=== PATIENT | male | born 1945 | race Caucasian/White ===

== ENCOUNTER 2018-10-10 15:54 | Emergency (ER) | payer MEDICARE ==
[~2018-10-10] VITALS: Ht 182.9 cm; Wt 74.4 kg
--- OUTSIDE RECORDS SUMMARY | 2018-10-10 15:57 | XMS REPORT | Summary of Care ---
Author Author Marsha Roman M.A. Organization Unknown Address [facility] Phone Unavailable Care Team Providers Care Watchmaker Apprentice Name Role Phone SAMI Gillespie, Marsha Joe M.A. Unavailable Unavailable MYRANDA CORRAL M.D. Unavailable Unavailable SAMI SMITH [place], DEMETRIO Alatorre Unavailable Unavailable MYRANDA CORRAL MD Unavailable Unavailable Unavailable Unavailable Functional Status Name Dates Details Functional status health issues are not documented Status: Name Dates Details Cognitive status health issues are not documented Status: Problems Name Dates Details Dysthymic disorder (300.4, F34.1) Status: Active S/P coronary artery stent placement (V45.82, Z95.5) Status: Active Hypercholesterolemia (272.0, E78.00) Status: Active Benign prostate hyperplasia (600.00, N40.0) Status: Active Depressive disorder (311, F32.9) Status: Active Influenza vaccine needed (V04.81, Z23) Status: Active Chest pain (786.50, R07.9) Status: Active History of CEA (carotid endarterectomy) (V45.89, Z98.890) Status: Active PVD (peripheral vascular disease) (443.9, I73.9) Status: Active Hypertension (401.9, I10) Status: Active Coronary artery disease (414.00, I25.10) Status: Active Vascular dementia (290.40, F01.50) Status: Active Medications Name Dates Details Aspirin 81 MG TABS TAKE 1 TABLET DAILY. Active Vitamin B-12 1000 MCG Oral Tablet TAKE 1 TABLET DAILY * Refills: 0 Active Rosuvastatin Calcium 40 MG Oral Tablet TAKE 1 TABLET DAILY. * Refills: 0 Active Vitamin D3 2000 UNIT Oral Capsule TAKE 1 CAPSULE DAILY * Refills: 0 Active Metoprolol Tartrate 25 MG Oral Tablet TAKE 1 TABLET TWICE DAILY. * Refills: 0 Active Isosorbide Mononitrate ER 60 MG Oral Tablet Extended Release 24 Hour TAKE 1 TABLET ONCE DAILY. * Refills: 0 Active Mirtazapine 30 MG Oral Tablet TAKE 1 TABLET AT BEDTIME. * Quantity: 30 Refills: 5 SAMI GillespieDEMETRIO Active Finasteride 5 MG Oral Tablet TAKE 1 TABLET DAILY. * Refills: 0 Active NIFEdipine ER 30 MG Oral Tablet Extended Release 24 Hour TAKE 1 TABLET EVERY EVENING * Quantity: 30 Refills: 10 SHAYNA GillespieMYRANDA * Start : 28-Jul-2018 Active Clopidogrel Bisulfate 75 MG Oral Tablet TAKE FOUR(4) TABLETS ON DAY ONE THEN TAKE ONE TABLET DAILY * Quantity: 34 Refills: 11 SHAYNA GillespieMYRANDA * Start : 04-Aug-2018 Active Allergies and Adverse Reactions Name Dates Details Keflex TABS (Allergy) Status: Active Sulfa Drugs (Allergy) Status: Active Past Medical History Name Dates Details History of backache (V13.59, Z87.39) Status: Resolved History of Brachial neuritis (723.4, M54.12) Status: Resolved History of carotid artery stenosis (V12.59, Z86.79) Status: Resolved History of chronic kidney disease (V13.09, Z87.448) Status: Resolved History of chronic obstructive lung disease (V12.69, Z87.09) Status: Resolved History of Degeneration of thoracic or lumbar intervertebral disc Status: Resolved History of dementia (V11.8, Z86.59) Status: Resolved History of depression (V11.8, Z86.59) Status: Resolved History of Enlarged prostate (600.00, N40.0) Status: Resolved History of hyperlipidemia (V12.29, Z86.39) Status: Resolved History of malignant neoplasm of skin (V10.83, Z85.828) Status: Resolved History of peripheral vascular disease (V12.59, Z86.79) Status: Resolved History of Presence of stent in artery (V49.89, Z95.828) Status: Resolved History of TIA (transient ischemic attack) (435.9, G45.9) Status: Resolved History of vitamin D deficiency (V12.1, Z86.39) Status: Resolved Procedures Procedure Dates Details [[facility]] LIPID PANEL Date: 04-Aug-2018 [QL] HEPATIC FUNCTION PANEL Date: 04-Aug-2018 [N] Carotid Bilateral 53578 Date: 18-Aug-2018 [N] HARISH-Ankle Brachial Index Multiple Levels 34241 Date: 18-Aug-2018 History of Shoulder Surgery Completed History of Coronary Artery Triple Bypass Graft Completed History of Cardiac catheterization with stent placement Completed History of Cholecystectomy Completed History of Neuroplasty Decompression Median Nerve At Carpal Tunnel Completed Immunization Name Dates Details pneumococcal vaccine, unspecified formulation on: Sep-2015 Fluzone High-Dose 0.5 ML Intramuscular Suspension Prefilled Syringe Lot #: [id number] on: 26-Jul-2018 Family History Name Dates Details Family history of Coronary Artery Disease (V17.49) Status: Active Family history of Stroke Syndrome (V17.1) Status: Active Family history of myocardial infarction (V17.3, Z82.49) Status: Active Name Dates Details Family history of malignant neoplasm of breast (V16.3, Z80.3) Status: Active Name Dates Details Family history of Aneurysm (442.9, I72.9) Status: Active Family history of Presence of stent in artery (V49.89, Z95.828) Status: Active Social History Name Dates Details - Status: Name Dates Details Current every day smoker Vital Signs Date Test Result Details [id number] BP Systolic 117 mm[Hg] Status: Comments: Location: LUE; Position: Sitting BP Diastolic 66 mm[Hg] Status: Comments: Location: LUE; Position: Sitting Height 72 in Status: Weight 165.3 lb Status: Body Mass Index Calculated 22.42 kg/m2 Status: Body Surface Area Calculated 1.96 m2 Status: Heart Rate 66 /min Status: Respiration Rate 16 /min Status: Temperature 98.3 f Status: Comments: Method: Oral [id number] BP Systolic 148 mm[Hg] Status: Comments: Location: LUE; Position: Sitting BP Diastolic 76 mm[Hg] Status: Comments: Location: LUE; Position: Sitting Height 72 in Status: Weight 158.5 lb Status: Body Mass Index Calculated 21.5 kg/m2 Status: Body Surface Area Calculated 1.93 m2 Status: Heart Rate 71 /min Status: Results Date Description Value Details Results not documented Plan of Care Name Dates Details Planned Observations Planned Goals not documented Planned Encounters Appointment; DEMETRIO GALLARDO M.D. On: 27-Oct-2018 14:15 Appointment; [facility] On: 10-Nov-2018 9:00 Appointment; [facility] On: 10-Nov-2018 10:00 Appointment; MYRANDA CORRAL M.D. On: 17-Nov-2018 10:40 Interventions Provided Follow-ups/Referrals* Follow-up visit in 2 months; Done: 31 Aug 2018 Instructions Name Dates Details Instructions not documented Encounters Appointment; DEMETRIO GALLARDO M.D. Encounter Diagnosis: Problem not documented On: 26-Jul-2018 9:30 Appointment; MYRANDA CORRAL M.D. Encounter Diagnosis: Problem not documented On: 28-Jul-2018 15:20 Appointment; LITOFREDYAshley NUCLEAR Encounter Diagnosis: Problem not documented On: 04-Aug-2018 8:30 Appointment; MYRANDA CORRAL M.D. Encounter Diagnosis: Problem not documented On: 04-Aug-2018 15:20
--- OUTSIDE RECORDS SUMMARY | 2018-10-10 15:57 | XMS REPORT ---
Author Author [facility] Address Unknown Phone Unavailable Care Team Providers Care Biopsychologist Name Role Phone Unavailable Unavailable Problems This patient has no known problems. Allergies, Adverse Reactions, Alerts This patient has no known allergies or adverse reactions. Medications This patient has no known medications.
[2018-10-10] MEDS ORDERED: SODIUM CHLORIDE 0.9% 1000ML 1,000 ML IV STA (16:48)
[2018-10-10] MEDS ORDERED: VANCOMYCIN 1GM/NS 250 ML 250 ML IV ONE (17:00)
[2018-10-10] MEDS ORDERED: PIPER-TAZ 3.375 GM 50 ML IV ONE (17:00)
[2018-10-10 17:53] LABS: BASOPHILS % 0.2 % (0.0-1.0); EOSINOPHILS % 0.1 % (0.0-6.0); HEMATOCRIT 37.8 % (38.2-49.6); HEMOGLOBIN 12.4 g/dL (14.0-18.0); LYMPHOCYTES # (AUTO) 1.4 (1.0-3.2); LYMPHOCYTES % 10.6 % (18.0-39.1); MEAN CORPUSCULAR HEMOGLOBIN 31.5 pg (28-32); MEAN CORPUSCULAR HGB CONC 32.8 g/dL (31-35); MEAN CORPUSCULAR VOLUME 95.9 fL (81-99); MONOCYTES % 7.5 % (4.4-11.3); NEUTROPHILS # (AUTO) 10.8 (2.1-6.9); NEUTROPHILS % 81.4 % (38.7-80.0); PLATELET COUNT 196 x10e3/uL (140-360); RED BLOOD COUNT 3.94 x10e6/uL (4.3-5.7); RED CELL DISTRIBUTION WIDTH 12.9 % (11.7-14.4)
[2018-10-10] MEDS ORDERED: ACETAMINOPHEN 325 MG TAB PO ONE (18:00)
[2018-10-10 18:17] LABS: ALBUMIN 3.4 g/dL (3.5-5.0); ALBUMIN/GLOBULIN RATIO 0.8 (0.8-2.0); ANION GAP 14.1 mmol/L (8-16); CALCIUM 9.6 mg/dL (8.4-10.2); CREATININE, SERUM 1.27 mg/dL (0.72-1.25); MAGNESIUM 2.1 MG/DL (1.3-2.1); POTASSIUM 4.1 mmol/L (3.5-5.1)
--- NOTE | 2018-10-10 19:00 | NUR ---
REPORT GIVEN TO RAYMOND AUGUST
[2018-10-10] MEDS ORDERED: ASPIR 8181 MG PO (19:29)
[2018-10-10] MEDS ORDERED: ISOSORBIDE MONO60 MG PO (19:29)
[2018-10-10] MEDS ORDERED: FINASTERIDE5 MG PO (19:29)
[2018-10-10] MEDS ORDERED: MIRTAZAPINE30 MG PO (19:29)
[2018-10-10] MEDS ORDERED: CLOPIDOGREL75 MG PO (19:29)
[2018-10-10] MEDS ORDERED: [UNRECOGNIZED DRUG - OTHER] (19:29)
[2018-10-10] MEDS ORDERED: VITAMIN B-121000 MC1 PO (19:29)
[2018-10-10] MEDS ORDERED: CRESTOR40 MG PO (19:29)
[2018-10-10] MEDS ORDERED: LOPRESSOR25 MG PO (19:29)
[2018-10-10] MEDS ORDERED: NAMENDA10 MG PO (19:29)
[2018-10-10] MEDS ORDERED: NIFEDIPINE ER30 MG PO (19:29)
[2018-10-10] MEDS ORDERED: VITAMIN D32000 UNI1 PO (19:29)
--- NOTE | 2018-10-10 20:04 | Diagnostic Imaging Report ---
History:Upper lip and nasal swelling. Comparison studies: None Technique: Axial images were obtained through the maxillofacial region. Coronal and sagittal images reconstructed from the axial data. Dose modulation, iterative reconstruction, and/or weight based adjustment of the mA/kV was utilized to reduce the radiation dose to as low as reasonably achievable. Intravenous contrast: None Findings: Soft tissues: Moderate premaxillary and upper lip subcutaneous soft tissue edema. Suboptimal evaluation for abscess due to lack of intravenous contrast. However no discrete large hypodense fluid collection. Mild perinasal soft tissue swelling. Moderate soft tissue edema involving the anterior and inferior aspect of the cartilaginous portion of the nasal septum (image 38, series 4), approximately measures 1.5 x 1.5 cm. Suboptimal evaluation due to metallic streak artifacts from dental hardware. Few prominent, particularly left level 1B and bilateral level 2 lymph nodes are likely reactive. Bones: No fractures Orbits: Globes: Intact Extra or intraconal abnormalities: None. Paranasal sinuses: Small polyp/retention cyst in left maxillary sinus. Moderate mucosal thickening in bilateral ethmoid sinuses. Incidental finding: Cervical spine: Moderate degenerative changes in the anterior atlantodental joint. C2-C3: Mild right foraminal stenosis due to facet and uncovertebral arthrosis. C3-C4: Posterior disc osteophyte complex results in mild canal stenosis. Moderate bilateral foraminal stenosis due to facet and uncovertebral arthrosis. IMPRESSION: 1. Moderate premaxillary, upper lip and mild perinasal soft tissue cellulitis. Suboptimal evaluation for abscess due to lack of intravenous contrast. 2. Moderate soft tissue swelling of the anterior and inferior aspect of nasal septum, raises possibility of underlying abscess. Please correlate clinically with direct examination. Signed by: Dr. Claudia Hall M.D. on 10/10/2018 8:00 PM
--- NOTE | 2018-10-10 20:34 | NUR ---
[facility]
--- NOTE | 2018-10-10 20:43 | NUR ---
FAMILY REQUEST TRANSFER TO [facility]
--- NOTE | 2018-10-10 20:54 | NUR ---
ADMIN APPROVAL RECEIVED BY BLAYNE PIERCE RN AT [facility]
--- NOTE | 2018-10-10 21:14 | NUR ---
REPORT CALLED TO [facility] ER STAFF NURSE, RAYMOND COUCH.
== END 2018-10-10 22:00 | disposition short-term general hospital (02) ==
LOC: ER 15:54
DX: R50.9 Fever, unspecified (principal); L02.91 Cutaneous abscess, unspecified; K13.0 Diseases of lips; I10 Essential (primary) hypertension; E78.5 Hyperlipidemia, unspecified; I25.10 Atherosclerotic heart disease of native coronary artery without angina pectoris; I73.9 Peripheral vascular disease, unspecified
CPT/HCPCS: 36415; 70486; 80053; 83605; 83735; 85025; 87040; 99284; J2543; J3370; J7030